=== PATIENT | female | born 1970 | race Caucasian/White ===

== ENCOUNTER → 2018-11-20 17:47 | Outpatient (CLI) | payer OTHER, SELFPAY | PROVIDERS: PCP Nurse Practitioner; Visit Provider Physician Assistant | DX: L02.31 Cutaneous abscess of buttock (principal) | CPT/HCPCS: 87252 ==

== ENCOUNTER → 2019-01-31 17:03 | Outpatient (CLI) | payer OTHER, SELFPAY | PROVIDERS: PCP Nurse Practitioner; Visit Provider Physician Assistant | DX: J02.9 Acute pharyngitis, unspecified (principal) | CPT/HCPCS: 87070; 87077 ==

== ENCOUNTER 2021-04-06 10:15 | Outpatient (RCR) | payer OTHER, SELFPAY ==
--- NOTE | 2021-03-30 08:55 | PT.OPPOC ---
Physical, Occupational & Speech Therapy At [facility] Current Diagnoses Cervicalgia (03/30/21) Visit Care Team Role Provider Type Nkechi Hassan PA-C Attending Provider Non-Staff Family Provider Primary Care Provider Referring Provider Specialty: Internal Medicine Address: [address] [place], [address] Email: Plan Of Care PT-OP-T Assessment and Plan Start: 03/25/21 10:39 Freq: Status: Active Protocol: Document 03/30/21 08:15 AMB (Rec: 04/03/21 08:54 AMB [email or web address]) Physical Therapy Assessment Rehab Potential Rehabilitation Potential Good Evaluation Complexity Number of Personal Factors/Comorbidities 1-2 Number of Body Systems Impaired 4 or More Clinical Presentation at Evaluation Evolving Impairments Impairments Pain,Posture,ROM,Strength Goals Three Impairment Strength Short Term Goal (STG) Radha will be independent in a HEP STG Duration 4 weeks [facility] Goal (LTG) Radha will improve her strength to 50# of freight claim investigator bilaterally. LTG Duration 8 weeks Two Impairment ROM Short Term Goal (STG) Radha will have full cervical AROM in all planes without in pain. STG Duration 4 weeks One Impairment Pain Short Term Goal (STG) Radha will lift 10# from the floor to waist height without pain. STG Duration 4 weeks [facility] Goal (LTG) Radha will work for 4 hours without an increase in neck pain. LTG Duration 8 weeks Assessment Summary Assessment Radha attends physical therapy with a history of left cervical spine pain and continued popping with cervical movement and a feeling of numbness in her neck. She changed jobs and is feeling better but is still concerned about the pain coming back, and the continued popping and numbness. She will benefit from physical therapy to reduce her pain, popping and improve her body mechanics. She does have a high copay and that will be a limiting factor. Physical Therapy Plan Frequency and Duration Frequency of Treatment 1x/Week Duration of Treatment 8 weeks Plan of Care Start Date 03/30/21 Plan of Care End Date 05/25/21 Therapeutic Interventions Therapeutic Interventions Home Exercise Program,Manual Therapy,Neuromuscular Re- education,Self-Care/Home Management,Therapeutic Activities,Therapeutic Exercises Modalities Cold Pack/Ice Massage,Electric Stimulation,Hot Packs, Ultrasound Next Visit Focus/Plan Next Note Type Treatment Note Next Visit Plan Manual therapy, scapular stabilization, cervical range of motion Plan of Care Dates Plan of Care Start Date 03/30/21 Plan of Care End Date 05/25/21 Electronically Signed by: Amita Todd, PT 04/03/21 0855 Please Sign and Return: I have reviewed this Plan of Care and certify that the skilled therapy services above are required to meet the patient?s needs. Physician Signature Date Printed Name and Credentials Clinical Instructor Signature Printed Name and Credentials
--- NOTE | 2021-03-30 08:55 | PT.OIE ---
Current Diagnoses Cervicalgia (03/30/21) Past Surgical History (Last Reviewed 06/17/20 @ 09:57 by NELSON Escobar) Status post dilation and curettage (09/13/14) Status post dilation and curettage Status post hysterectomy (06/30/15) Visit Care Team Role Provider Type Nkechi Hassan PA-C Attending Provider Non-Staff Family Provider Primary Care Provider Referring Provider Specialty: Internal Medicine Address: [address] [place] [address], [id number] Email: Physical Therapy Initial Evaluation PT-OP-A Visit Information Start: 03/25/21 10:39 Freq: Status: Active Protocol: Document 03/30/21 08:15 AMB (Rec: 03/31/21 10:20 AMB [email or web address]) Out-Patient Physical Therapy Visit Information Visit Information Visit Type Initial Evaluation Visit Start Time 08:15 Visit Stop Time 09:00 Total Visit Minutes 45 Visit Number 1 PT-OP-B Current Condition Start: 03/25/21 10:39 Freq: Status: Active Protocol: Document 03/30/21 08:11 AMB (Rec: 03/30/21 08:25 AMB [id number]) Current Condition History of Current Condition Onset Date 1 month ago Current Complaints L neck pain History of Current Condition L sharp pain in the neck is better now. Worse before, but has since changed jobs and the pain is better, but noticing a lot of popping. Denies weakness. Has noticed more popping in the neck since the pain started, several times a day with neck movement . 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 Prior Functional Status Baseline Function- ADL's Independent Baseline Function- Mobility Independent Current Functional Impairments (Reported) Functional Limitations- ADL's Had to change jobs due to neck pain Personal Factors Other Personal Factors That May Effect Hx bilateral carpal tunnel Therapy/Recovery release, cluster headaches, hypertension PT-OP-C Subjective Start: 03/25/21 10:39 Freq: Status: Active Protocol: Document 03/30/21 08:15 AMB (Rec: 03/31/21 10:20 AMB [email or web address]) Patient Questionnaires Neck Disability Index NDI Score 2 Neck Disability Index Impairment 1 to 19% Impaired (Score 1-9) Quick Dash- Upper Extremity Quick Dash UE Score 7 Quick Dash UE Impairment 1 to 19% Impaired (Score 1-19) PT-OP-J Posture/Palpation/Skin Start: 03/25/21 10:39 Freq: Status: Active Protocol: Document 03/30/21 08:15 AMB (Rec: 04/03/21 08:26 AMB [email or web address]) Posture Evaluation Comments Posture Comments Mild forward head and forward shoulders Palpation Assessment Location One Palpation Findings Muscle Guarding,Tenderness, Trigger Point Palpation Details Pt reports a subjective feeling of numbness over the skin just to the left of C7, but not numbness distally, and none in the hand or arm. PT-OP-K Range of Motion Start: 03/25/21 10:39 Freq: Status: Active Protocol: Document 03/30/21 08:15 AMB (Rec: 04/03/21 08:19 AMB [email or web address]) Cervical Spine Range of Motion Cervical Spine Active Degrees Testing Position Sitting Flexion 50 Extension 50 Rotation Left 66 Rotation Right 72 Lateral Flexion Left 35 Lateral Flexion Right 33 PT-OP-M Strength Start: 03/25/21 10:39 Freq: Status: Active Protocol: Document 03/30/21 08:15 AMB (Rec: 04/03/21 08:19 AMB [email or web address]) Hand Mumps Developer/Pinch Strength Hand Dominance Hand Dominance Right Hand Strength Right Mumps Developer (lbs) 50 Left Mumps Developer (lbs) 40 PT-OP-Q Treatments Start: 03/25/21 10:39 Freq: Status: Active Protocol: Document 03/30/21 08:15 AMB (Rec: 03/31/21 15:57 AMB [email or web address]) Therapeutic Exercises Standing Exercises 3 Standing Exercise Name shoulder rolls Reps/Minutes 10 2 Standing Exercise Name UT stretch Reps/Minutes 30x2 1 Standing Exercise Name rows Resistance #2 tband Reps/Minutes 2x10 PT-OP-T Assessment and Plan Start: 03/25/21 10:39 Freq: Status: Active Protocol: Document 03/30/21 08:15 AMB (Rec: 04/03/21 08:54 AMB [email or web address]) Physical Therapy Assessment Rehab Potential Rehabilitation Potential Good Evaluation Complexity Number of Personal Factors/Comorbidities 1-2 Number of Body Systems Impaired 4 or More Clinical Presentation at Evaluation Evolving Impairments Impairments Pain,Posture,ROM,Strength Goals Three Impairment Strength Short Term Goal (STG) Radha will be independent in a HEP STG Duration 4 weeks Retirement Goal (LTG) Radha will improve her strength to 50# of ceo ziff davis bilaterally. LTG Duration 8 weeks Two Impairment ROM Short Term Goal (STG) Radha will have full cervical AROM in all planes without in pain. STG Duration 4 weeks One Impairment Pain Short Term Goal (STG) Radha will lift 10# from the floor to waist height without pain. STG Duration 4 weeks Retirement Goal (LTG) Radha will work for 4 hours without an increase in neck pain. LTG Duration 8 weeks Assessment Summary Assessment Radha attends physical therapy with a history of left cervical spine pain and continued popping with cervical movement and a feeling of numbness in her neck. She changed jobs and is feeling better but is still concerned about the pain coming back, and the continued popping and numbness. She will benefit from physical therapy to reduce her pain, popping and improve her body mechanics. She does have a high copay and that will be a limiting factor. Physical Therapy Plan Frequency and Duration Frequency of Treatment 1x/Week Duration of Treatment 8 weeks Plan of Care Start Date 03/30/21 Plan of Care End Date 05/25/21 Therapeutic Interventions Therapeutic Interventions Home Exercise Program,Manual Therapy,Neuromuscular Re- education,Self-Care/Home Management,Therapeutic Activities,Therapeutic Exercises Modalities Cold Pack/Ice Massage,Electric Stimulation,Hot Packs, Ultrasound Next Visit Focus/Plan Next Note Type Treatment Note Next Visit Plan Manual therapy, scapular stabilization, cervical range of motion
--- NOTE | 2021-04-06 11:01 | PT.OTN ---
Current Diagnoses Cervicalgia (04/06/21) Physical Therapy Treatment Note PT-OP-A Visit Information Start: 03/25/21 10:39 Freq: Status: Active Protocol: Document 04/06/21 10:08 MA (Rec: 04/06/21 11:01 MA [id number]) Out-Patient Physical Therapy Visit Information Visit Information Visit Type Treatment Note Visit Start Time 10:10 Visit Stop Time 10:50 Total Visit Minutes 40 Visit Number 2 Number of AUTOMOTIVE LEASING SALES REPRESENTATIVE Visits 1 PT-OP-B Current Condition Start: 03/25/21 10:39 Freq: Status: Active Protocol: Document 03/30/21 08:11 AMB (Rec: 03/30/21 08:25 AMB [id number]) Current Condition History of Current Condition Onset Date 1 month ago Current Complaints L neck pain History of Current Condition L sharp pain in the neck is better now. Worse before, but has since changed jobs and the pain is better, but noticing a lot of popping. Denies weakness. Has noticed more popping in the neck since the pain started, several times a day with neck movement . 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 Prior Functional Status Baseline Function- ADL's Independent Baseline Function- Mobility Independent Current Functional Impairments (Reported) Functional Limitations- ADL's Had to change jobs due to neck pain Personal Factors Other Personal Factors That May Effect Hx bilateral carpal tunnel Therapy/Recovery release, cluster headaches, hypertension PT-OP-C Subjective Start: 03/25/21 10:39 Freq: Status: Active Protocol: Document 04/06/21 10:08 MA (Rec: 04/06/21 11:01 MA [id number]) OP-PT Subjective Patient Comments Patient Comments Pt reports having pain/ cramping from her neck to her hip on L side and down her LUE after therapy lasting for ~48 hours. PT-OP-J Posture/Palpation/Skin Start: 03/25/21 10:39 Freq: Status: Active Protocol: Document 03/30/21 08:15 AMB (Rec: 04/03/21 08:26 AMB [email or web address]) Posture Evaluation Comments Posture Comments Mild forward head and forward shoulders Palpation Assessment Location One Palpation Findings Muscle Guarding,Tenderness, Trigger Point Palpation Details Pt reports a subjective feeling of numbness over the skin just to the left of C7, but not numbness distally, and none in the hand or arm. PT-OP-K Range of Motion Start: 03/25/21 10:39 Freq: Status: Active Protocol: Document 03/30/21 08:15 AMB (Rec: 04/03/21 08:19 AMB [email or web address]) Cervical Spine Range of Motion Cervical Spine Active Degrees Testing Position Sitting Flexion 50 Extension 50 Rotation Left 66 Rotation Right 72 Lateral Flexion Left 35 Lateral Flexion Right 33 PT-OP-M Strength Start: 03/25/21 10:39 Freq: Status: Active Protocol: Document 03/30/21 08:15 AMB (Rec: 04/03/21 08:19 AMB [email or web address]) Hand Manual Arts Therapy Teacher/Pinch Strength Hand Dominance Hand Dominance Right Hand Strength Right Manual Arts Therapy Teacher (lbs) 50 Left Manual Arts Therapy Teacher (lbs) 40 PT-OP-Q Treatments Start: 03/25/21 10:39 Freq: Status: Active Protocol: Document 04/06/21 10:08 MA (Rec: 04/06/21 11:01 MA [id number]) Therapeutic Exercises Sitting Exercises Manual Arts Therapy Teacher strength Side bilateral Resistance Medium Green Putty Reps/Minutes 2' Standing Exercises 4 Standing Exercise Name shoulder extension Side bilateral Resistance lvl 2 TB Reps/Minutes 2x10 Comments added to HEP 3 Standing Exercise Name shoulder rolls Reps/Minutes 10 2 Standing Exercise Name UT stretch Reps/Minutes 30x2 1 Standing Exercise Name rows Resistance #2 tband Reps/Minutes 2x10 Manual Therapy Treatment Soft Tissue Mobilization CS Body Location cervical musculature Mobilization Type Myofascial Release Intensity/Depth Moderate Body Position Supine Manual Traction CS traction Details Cervical traction Body Position Supine Reps/Duration 1' Self-Care/Home Management Treatment Education Other Education Discussed difference between pain and soreness, proper postural alignment and what could be causing popping, reviewed x-ray results, and added new HEP. Educated pt on previous RUE swelling possibly linked to smoking and high BP vs arthritis. PT-OP-T Assessment and Plan Start: 03/25/21 10:39 Freq: Status: Active Protocol: Document 04/06/21 10:08 MA (Rec: 04/06/21 11:01 MA [id number]) Physical Therapy Assessment Goals Three Impairment Strength Short Term Goal (STG) Radha will be independent in a HEP STG Duration 4 weeks Care Home Goal (LTG) Radha will improve her strength to 50# of therapist asst bilaterally. LTG Duration 8 weeks Two Impairment ROM Short Term Goal (STG) Radha will have full cervical AROM in all planes without in pain. STG Duration 4 weeks One Impairment Pain Short Term Goal (STG) Radha will lift 10# from the floor to waist height without pain. STG Duration 4 weeks [employer] Goal (LTG) Radha will work for 4 hours without an increase in neck pain. LTG Duration 8 weeks Assessment Summary Assessment Pt reports having increased cramping and soreness after first session. Discussed with pt how she may have some soreness after her exercises due to muscles working but that she shouldn't feel increased pain. She reports having a hx of swelling in R arm and admits to being a smoker and previously taking medication for high BP. Spoke with pt about how her putty therapist asst strengthening exercises may make her forearm sore but should not cause swelling and to stop exercise immediately and report back if swelling occurs. Added putty squeezes, UT stretch, certical retraction/chin tucks, shoulder rolls, scap retraction, and shd extension to HEP. Physical Therapy Plan Frequency and Duration Frequency of Treatment 1x/Week Duration of Treatment 8 weeks Plan of Care Start Date 03/30/21 Plan of Care End Date 05/25/21 Therapeutic Interventions Therapeutic Interventions Home Exercise Program,Manual Therapy,Neuromuscular Re- education,Self-Care/Home Management,Therapeutic Activities,Therapeutic Exercises Modalities Cold Pack/Ice Massage,Electric Stimulation,Hot Packs, Ultrasound Next Visit Focus/Plan Next Note Type Treatment Note Next Visit Plan Manual therapy, scapular stabilization, cervical range of motion
--- NOTE | 2021-04-13 08:51 | PT-OP ANOTE ---
Left voicemail explaining no show policy and confirming next visit.
--- NOTE | 2021-04-23 15:56 | PT.OPDS ---
Current Diagnoses Cervicalgia (04/06/21) Visit Care Team Role Provider Type Nkechi Hassan PA-C Attending Provider Non-Staff Family Provider Primary Care Provider Referring Provider Specialty: Internal Medicine Address: [address] [place] [address], [phone] Email: Visit Number Visit Number 2 Discharge Summary PT-OP-B Current Condition Start: 03/25/21 10:39 Freq: Status: Active Protocol: Document 03/30/21 08:11 AMB (Rec: 03/30/21 08:25 AMB [id number]) Current Condition History of Current Condition Onset Date 1 month ago Current Complaints L neck pain History of Current Condition L sharp pain in the neck is better now. Worse before, but has since changed jobs and the pain is better, but noticing a lot of popping. Denies weakness. Has noticed more popping in the neck since the pain started, several times a day with neck movement . 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 Prior Functional Status Baseline Function- ADL's Independent Baseline Function- Mobility Independent Current Functional Impairments (Reported) Functional Limitations- ADL's Had to change jobs due to neck pain Personal Factors Other Personal Factors That May Effect Hx bilateral carpal tunnel Therapy/Recovery release, cluster headaches, hypertension PT-OP-C Subjective Start: 03/25/21 10:39 Freq: Status: Active Protocol: Document 04/06/21 10:08 MA (Rec: 04/06/21 11:01 MA [id number]) OP-PT Subjective Patient Comments Patient Comments Pt reports having pain/ cramping from her neck to her hip on L side and down her LUE after therapy lasting for ~48 hours. PT-OP-J Posture/Palpation/Skin Start: 03/25/21 10:39 Freq: Status: Active Protocol: Document 03/30/21 08:15 AMB (Rec: 04/03/21 08:26 AMB [email or web address]) Posture Evaluation Comments Posture Comments Mild forward head and forward shoulders Palpation Assessment Location One Palpation Findings Muscle Guarding,Tenderness, Trigger Point Palpation Details Pt reports a subjective feeling of numbness over the skin just to the left of C7, but not numbness distally, and none in the hand or arm. PT-OP-K Range of Motion Start: 03/25/21 10:39 Freq: Status: Active Protocol: Document 03/30/21 08:15 AMB (Rec: 04/03/21 08:19 AMB [email or web address]) Cervical Spine Range of Motion Cervical Spine Active Degrees Testing Position Sitting Flexion 50 Extension 50 Rotation Left 66 Rotation Right 72 Lateral Flexion Left 35 Lateral Flexion Right 33 PT-OP-M Strength Start: 03/25/21 10:39 Freq: Status: Active Protocol: Document 03/30/21 08:15 AMB (Rec: 04/03/21 08:19 AMB [email or web address]) Hand Ecological Modeler/Pinch Strength Hand Dominance Hand Dominance Right Hand Strength Right Ecological Modeler (lbs) 50 Left Ecological Modeler (lbs) 40 PT-OP-T Assessment and Plan Start: 03/25/21 10:39 Freq: Status: Active Protocol: Document 04/23/21 15:55 AMB (Rec: 04/23/21 15:56 AMB [email or web address]) Physical Therapy Assessment Goals Three Impairment Strength Short Term Goal (STG) Radha will be independent in a HEP STG Duration 4 weeks [employer] Boring Machine Operator Goal (LTG) Radha will improve her strength to 50# of electric motor controls assembler bilaterally. LTG Duration 8 weeks Two Impairment ROM Short Term Goal (STG) Radha will have full cervical AROM in all planes without in pain. STG Duration 4 weeks One Impairment Pain Short Term Goal (STG) Radha will lift 10# from the floor to waist height without pain. STG Duration 4 weeks [employer] Boring Machine Operator Goal (LTG) Radha will work for 4 hours without an increase in neck pain. LTG Duration 8 weeks Assessment Summary Assessment Radha attended one appointment since eval. Then no showed and canceled, she is therefore discharged. Physical Therapy Plan Discharge Physical Therapy Discharge Reasons Patient Request
== END 2021-04-24 09:17 ==
LOC: PHYS 10:15
PROVIDERS: Family Provider Physician Assistant; PCP Physician Assistant; Referring Provider Physician Assistant; Visit Provider Physician Assistant
DX: M54.2 Cervicalgia (principal)
CPT/HCPCS: 97110; 97140; 97161; 97535

== ENCOUNTER → 2021-05-28 11:56 | Outpatient (CLI) | payer OTHER, SELFPAY | PROVIDERS: Family Provider Physician Assistant; PCP Physician Assistant; Visit Provider Physician Assistant | DX: L02.91 Cutaneous abscess, unspecified (principal) | CPT/HCPCS: 87070; 87205 ==

== ENCOUNTER → 2022-09-06 09:35 | Outpatient (CLI) | payer OTHER, SELFPAY ==
--- NOTE | 2022-09-06 09:38 | DI.RAD.S_ITS ---
PROCEDURE: XR CHEST 2V INDICATIONS: Cough TECHNIQUE: 2 views of the chest were acquired. COMPARISON: None. FINDINGS: Surgical changes and devices: None. Lungs and pleura: Lungs are clear. No pleural effusions or pneumothorax. Peribronchial cuffing. Mediastinum: Mediastinal contours are normal. Heart size is normal. Bones and chest wall: No suspicious bony abnormalities. Soft tissues appear unremarkable. IMPRESSION: Peribronchial cuffing, typically indicating infectious or inflammatory bronchitis. Dictated by: Shreyas Wlal M.D. on 09/06/2022 at 11:47 Approved by: Shreyas Wall M.D. on 09/06/2022 at 11:48
== END ==
PROVIDERS: Family Provider Physician Assistant; PCP Physician Assistant; Referring Provider Physician Assistant; Visit Provider Physician Assistant
DX: R05.9 Cough, unspecified (principal)
CPT/HCPCS: 71046

== ENCOUNTER → 2023-03-27 10:34 | Outpatient (CLI) | payer OTHER, SELFPAY ==
--- NOTE | 2023-03-27 10:36 | DI.RAD.S_ITS ---
PROCEDURE: XR CHEST 2V INDICATIONS: Increased cough and sputum production x2 weeks TECHNIQUE: 2 views of the chest were acquired. COMPARISON: [facility], CR, XR CHEST 2V, 09/06/2022, 9:34. FINDINGS: Surgical changes and devices: None. Lungs and pleura: Lungs are clear. No pleural effusions or pneumothorax. Mediastinum: Mediastinal contours are normal. Heart size is normal. Bones and chest wall: No suspicious bony abnormalities. Soft tissues appear unremarkable. IMPRESSION: No acute cardiopulmonary abnormality is seen. Dictated by: Ruthie Carrillo M.D. on 03/27/2023 at 19:36 Approved by: Ruthie Carrillo M.D. on 03/27/2023 at 19:37
== END ==
PROVIDERS: Family Provider Physician Assistant; PCP Physician Assistant; Referring Provider Urology; Visit Provider Urology
DX: J44.1 Chronic obstructive pulmonary disease with (acute) exacerbation (principal)
CPT/HCPCS: 71046

== ENCOUNTER → 2024-04-30 08:34 | Outpatient (CLI) | payer OTHER, SELFPAY ==
--- NOTE | 2024-04-30 08:35 | DI.RAD.S_ITS ---
PROCEDURE: XR CHEST 2V INDICATIONS: SOB, cough, rhonchi TECHNIQUE: 2 views of the chest were acquired. COMPARISON: [facility], CR, XR CHEST 2V, 03/27/2023, 10:39. [facility], CR, XR CHEST 2V, 09/06/2022, 9:34. FINDINGS: Surgical changes and devices: None. Lungs and pleura: Lungs are clear. No pleural effusions or pneumothorax. Mediastinum: Mediastinal contours are normal. Heart size is normal. Bones and chest wall: No suspicious bony abnormalities. Soft tissues appear unremarkable. IMPRESSION: No acute cardiopulmonary abnormality is seen. Dictated by: Jatin Duff M.D. on 04/30/2024 at 9:05 Approved by: Jatin Duff M.D. on 04/30/2024 at 9:06
== END ==
PROVIDERS: Family Provider Physician Assistant; PCP Physician Assistant; Referring Provider Physician Assistant Surgical; Visit Provider Physician Assistant Surgical
DX: R09.89 Other specified symptoms and signs involving the circulatory and respiratory systems (principal)
CPT/HCPCS: 71046